=== PATIENT | male | born 2005 | race Two or more races ===

== ENCOUNTER → 2024-01-30 09:18 | Outpatient (REF) | payer OTHER, SELFPAY | LOC: HWRAD 09:18 | PROVIDERS: ATTENDING PHYSICIAN Internal Medicine | DX: R79.89 Other specified abnormal findings of blood chemistry (principal) | CPT/HCPCS: 76536 ==

== ENCOUNTER 2024-08-10 16:40 | Emergency (ER) | payer OTHER, SELFPAY ==
[2024-08-10] VITALS (14 sets, daily range): BP systolic 142–153; BP diastolic 85–110
--- NOTE | 2024-08-10 17:57 | ED.GENMED ---
History of Present Illness
General
Chief Complaint: Musculo-Skeletal Complaint
Source: patient and family
Exam Limitations: none
Time Seen by Provider: 08/10/24 17:09
Nursing documentation reviewed up to this point in time: agreed with
History of Present Illness
History of Present Illness:
19-year-old male presents for evaluation after left shoulder injury. Patient was doing an obstacle course and was sliding headfirst down an inflatable slide. Injured his left shoulder. Denies any other injuries or complaints.
Review of Systems
Review of Systems
All Other Systems: ROS reviewed and negative except as documented in HPI and ROS
Musculoskeletal: Reports joint pain
Neurological: Denies weakness or numbness
Phy Exam
Physical Exam
Physical Exam:
General: Well appearing and non-toxic
HEENT: protecting airway
Neck: appears supple
CV: No evidence of cyanosis
Resp: No accessory muscle use
Abd: Non-distended
Extremities: Obviously dislocated left shoulder; no tenderness of the humerus or elbow joint, no tenderness of the forearm or wrist, strong distal left radial pulse, motor and sensory intact left upper extremity radial, median, ulnar nerve
distribution
Neuro: Alert
Psych: Normal affect
Skin: Intact
Scores
Heart Failure Risk
Heart Failure Risk Score: Not Applicable
Heart Score for Chest Pain Patients
STEMI patient?: Not applicable
Withdrawal Assessment of Alcohol
Withdrawal Assessment Completed?: Not applicable
Course
Orders/Labs/Results
Orders:
Orders
08/10/24 16:53
CR Shoulder, Trauma - Left Urgent
Comment:
Reason For Exam: Trauma
08/10/24 17:42
Propofol [Diprivan] 20 ml .ROUTE .STK-MED
08/10/24 17:49
Shoulder, Left 1 View CR [CR Shoulder - Left 1 View] Urgent
Comment:
Reason For Exam: relocation of left shoulder dislocation
Vital Signs
Initial and Last Documented VS:
Initial Vital Signs
Temp Pulse Resp BP Pulse Ox
36.7 C 107 20 152/105 97
08/10/24 16:41 08/10/24 16:41 08/10/24 16:41 08/10/24 16:41 08/10/24 16:41
Last Documented Vital Signs
Temp Pulse Resp BP Pulse Ox
36.7 C 110 20 153/105 95
08/10/24 16:41 08/10/24 16:41 08/10/24 16:41 08/10/24 16:41 08/10/24 16:41
Procedures
Moderate Sedation
ASA Risk Score: Class I
Chart and allergies reviewed: Yes
Consent for anesthesia obtained: Yes
Time out completed (validating right patient & procedure): Yes
Moderate Sedation Start Time(when first medication is given): 17:45
History of difficult intubation: No
Airway free of obstruction: Yes
Patient has a gag reflex: Yes
Patient is able to open mouth: Yes
Patient has no dentures: Yes
Patient has no loose teeth: Yes
Medication administered by Provider during Moderate Sedation: IV Propofol (mg)
Total dose administered: 90
Time drug administered: 17:45
Moderate Sedation Procedure End Time: 17:55
Splinting/Sling Placement
Left Shoulder:
Procedure completed by: Braxton Gold MD
Pre-splint extermity exam: neurovascular intact
Type of sling: sling fitted
Normal distal neurovascular exam?: Yes
Joint/Fracture Reduction
Left Shoulder:
Indication for procedure:: shoulder dislocation
Procedure completed by: Braxton Godl MD
If no, reason: Emergency procedure (verbal consent for emergency procedure due to pain)
Anesthesia/sedation: Moderate sedation
Injury was: closed
Further treatement: no treatment needed
Post reduction exam: stable
Capillary Refill: normal
Normal distal neurovascular exam?: Yes
Peripheral Pulses: radial (left): 2+
MDM/Problems Addressed
Differential Diagnosis Includes:
Shoulder dislocation, shoulder fracture, AC separation
MDM/Problems Addressed:
19-year-old male presents for evaluation of left shoulder injury as described above. He has a dislocated shoulder on x-ray. Initial attempts at reduction without sedation unsuccessful due to pain; decision with patient and father to proceed with
sedation and shoulder subsequently reduced successfully. Patient placed in a sling. Postreduction x-ray confirms placement. Will monitor here in the emergency room after sedation, plan for discharge with orthopedic follow-up.
*Radiology
Radiology exam reviewed: preliminary read by ED provider and radiology read reviewed
*Pulse Oximetry
Patient hypoxic: no
*Critical Care Note
Total Time (30-74mins, 75-104mins- exclusive of procedures): Not Applicable
Data Reviewed
Source: patient and family
ED Attending Note
-
Portions of this chart may have been created with voice recognition software.� Occasional wrong word or��sound alike� substitutions may have occurred due to the inherent limitations of voice recognition software.
Discharge Plan
Departure
Discharge Problem:
Dislocation of shoulder, left, closed, Hill-Sachs fracture
Instructions: Shoulder Dislocation (DC)
Referrals:
Jimbo Hubbard MD [Active] - Call in 1-3 days for appt (Shoulder specialist)
Activity Restrictions/Additional Instructions:
Thank you for visiting the Emergency Department at [facility].
1. Please schedule a follow up appointment as directed. Call first thing tomorrow morning to make an appointment.
2. If indicated, please take your medications as instructed and indicated on discharge paperwork.
3. If any of your symptoms do not improve, or persist, or become more severe within 6-12 hours, please return to the emergency department for further care.
4. Please return to the emergency department if you develop a headache, neck pain/stiffness, fever greater than 100.4F, chest pain, shortness of breath, persistent nausea, vomiting, slurred speech, difficulty walking, numbness/tingling, weakness,
signs of infection or any other symptoms that are worrisome to you.
Please call [phone] if you have any questions.
Interventions
Interventions:
*Risk Screen - Suicide Last Done: 08/10/24 16:41
*General Assessment Last Done: 08/10/24 17:35
*Neglect/Abuse Screening Last Done: 08/10/24 17:35
*ED- Fall Risk Assessment Last Done: 08/10/24 17:35
*ED COVID-19 Vaccine History Last Done: 08/10/24 17:35
ED-Musculoskeletal Assessment Last Done: 08/10/24 17:35
Discharge Date and Time
Print Language: CROATIAN
== END 2024-08-10 18:54 | disposition home or self-care (01) ==
LOC: EMR 16:40
PROVIDERS: EMERGENCY PHYSICIAN Emergency Medicine; FAMILY PHYSICIAN Internal Medicine
DX: S42.292A Other displaced fracture of upper end of left humerus, initial encounter for closed fracture (principal); X58.XXXA Exposure to other specified factors, initial encounter
CPT/HCPCS: 99283; 24505; 99152; 73020; 73030

== ENCOUNTER → 2024-12-10 09:48 | Outpatient (REF) | payer OTHER, SELFPAY | LOC: HWRAD 09:48 | PROVIDERS: ATTENDING PHYSICIAN Internal Medicine Endocrinology, Diabetes & Metabolism; FAMILY PHYSICIAN Internal Medicine | DX: E05.90 Thyrotoxicosis, unspecified without thyrotoxic crisis or storm (principal) | CPT/HCPCS: 76536 ==